=== PATIENT | female | born 1955 | race Caucasian/White ===

== ENCOUNTER → 2019-12-14 10:03 | Outpatient (REF) | payer OTHER, SELFPAY | LOC: ANHLAB 10:03 | PROVIDERS: PCP Internal Medicine; Visit Provider Nurse Practitioner | DX: C44.519 Basal cell carcinoma of skin of other part of trunk (principal) | CPT/HCPCS: 88305; 88331; 88332 ==

== ENCOUNTER → 2020-11-11 11:26 | Outpatient (CLI) | payer MEDICARE, SELFPAY ==
--- NOTE | ~2020-11-11 | MM_ITS ---
EXAMINATION: MM screening [facility] BI w damien HISTORY: Screening mammogram TECHNIQUE: Craniocaudal and mediolateral oblique 3-D tomosynthesis images were obtained and synthetic 2-D images were generated. CAD analysis was submitted and interpreted. COMPARISON: 11/02/2019, 10/31/2018, 10/18/2017 BREAST PARENCHYMAL COMPOSITION: The breasts are heterogeneously dense, which may obscure small masses . FINDINGS: There is no evidence of suspicious mass, calcification, or architectural distortion to sugg est malignancy in either breast. There has been no suspicious interval change. IMPRESSION: 1. No mammographic evidence of malignancy. 2. Recommend routine screening mammography in one year. BI-RADS Category 1: Negative Reviewed, dictated and finalized at location A. NILE COUNSELOR
== END ==
PROVIDERS: Visit Provider Nurse Practitioner
DX: Z12.31 Encounter for screening mammogram for malignant neoplasm of breast (principal)
CPT/HCPCS: 77063; 77067

== ENCOUNTER → 2021-12-20 12:27 | Outpatient (CLI) | payer MEDICARE, SELFPAY ==
--- NOTE | ~2021-12-20 | DEXA_ITS ---
Bone Density Report Name: NASRA DELEON Age: 66 Sex: Female Ethnicity: White Date of : 1955 Indication: postmenopausal; screening for osteoporosis; hysterectomy; Referring Provider: RUDY Study: Bone densitometry was performed. Exam Date: December 20, 2021 Accession number: [id number] Bone Density: Region BMD T-score Z-score Classification AP Spine (L1-L4) 1.239 1.7 3.6 Normal Femoral Neck (Left) 0.835 -0.1 1.5 Normal Total Hip (Left) 0.999 0.5 1.8 Normal Femoral Neck (Right) 0.841 -0.1 1.5 Normal Total Hip (Right) 0.970 0.2 1.5 Normal Total Hip Mean 0.985 0.4 1.7 Normal World Health Organization criteria for BMD impression classify patients as: Normal (T-score at or above -1.0), Osteopenia (T-score between -1.0 and -2.5), or Osteoporosis (T-score at or below -2.5). 10-year Fracture Risk: FRAX not reported because: All T-scores for Spine Total, Hip Total, Femoral Neck at or above -1.0 Previous Exams: Region Exam Age BMD T-score BMD Change BMD Change Date g/cm2 vs Baseline vs Previous AP Spine(L1-L4) 12/20/2021 66 1.239 1.7 0.029* -0.089* 11/02/2019 64 1.328 2.6 0.117* 0.051* 09/24/2014 59 1.277 2.1 0.067* 0.067* 05/14/2008 52 1.210 1.5 Total Hip(Left) 12/20/2021 66 0.999 0.5 0.056* -0.026 11/02/2019 64 1.025 0.7 0.082* 0.002 09/24/2014 59 1.024 0.7 0.080* 0.080* 05/14/2008 52 0.944 0.0 Total Hip(Right) 12/20/2021 66 0.970 0.2 0.024 -0.047* 11/02/2019 64 1.017 0.6 0.072* 0.013 09/24/2014 59 1.005 0.5 0.059* 0.059* 05/14/2008 52 0.946 0.0 *Denotes significance at 95% confidence level, LSC for AP Spine = 0.022 g/cm2, LSC for Total Hip = 0.027 g/cm2 Clinical Information Provided by Patient: Has the following medical conditions: Hysterectomy Patient maximum height was 68.50 Menopause Age: 30 Drinks caffeinated beverages Onset of menses at age 13 Number of children 1 Impression: The patient has normal bone mass. The BMD for the AP Spine(L1-L4) decreased, changing by -0.089 since the last DXA exam. The BMD for the Total Hip(Right) decreased, changing by -0.047 since the last DXA exam. Discussion: BONE DENSITY IS ABOVE THE MINIMUM DESIRABLE LEVEL AT ALL SKELETAL SITES TESTED. This patient?s bone min
--- NOTE | ~2021-12-20 | MM_ITS ---
EXAMINATION: MM screening [facility] w damien HISTORY: Screening TECHNIQUE: Craniocaudal and mediolateral oblique 3-D tomosynthesis images were obtained and synthetic 2-D images were generated. CAD analysis was submitted and interpreted. COMPARISON: Comparison to multiple prior studies sequentially, with oldest reviewed study dated 02/2015. BREAST PARENCHYMAL COMPOSITION: The breasts are heterogenously dense, which may obscure small masses FINDINGS: There is no evidence of suspicious mass, calcification, or architectural distortion to sugg est malignancy in either breast. There has been no suspicious interval change. IMPRESSION: 1. No mammographic evidence of malignancy. 2. Recommend routine screening mammography in one year. BI-RADS Category 1: Negative Reviewed, dictated and finalized at location A. UNICATIONS SENIOR ASSOCIATE
== END ==
DX: Z12.31 Encounter for screening mammogram for malignant neoplasm of breast (principal); Z78.0 Asymptomatic menopausal state
CPT/HCPCS: 77063; 77067; 77080

== ENCOUNTER → 2023-01-03 11:24 | Outpatient (CLI) | payer MEDICARE, SELFPAY ==
--- NOTE | ~2023-01-03 | MM_ITS ---
EXAMINATION: MM screening [facility] w damien HISTORY: Screening mammogram TECHNIQUE: Craniocaudal and mediolateral oblique 3-D tomosynthesis images were obtained and synthetic 2-D images were generated. CAD analysis was submitted and interpreted. COMPARISON: December 20, 2021, November 11, 2020, November 02, 2019 bilateral screening mammogram exam[place] BREAST PARENCHYMAL COMPOSITION: The breasts are heterogeneously dense, which may obscure small masses . FINDINGS: There is no evidence of suspicious mass, calcification, or architectural distortion to sugg est malignancy in either breast. There has been no suspicious interval change. IMPRESSION: 1. No mammographic evidence of malignancy. 2. Recommend routine screening mammography in one year. BI-RADS Category 1: Negative Reviewed, dictated and finalized at location A. LER CAREGIVER
== END ==
PROVIDERS: PCP Hospitalist; Visit Provider Nurse Practitioner
DX: Z12.31 Encounter for screening mammogram for malignant neoplasm of breast (principal)
CPT/HCPCS: 77063; 77067

== ENCOUNTER 2024-05-06 15:31 | Outpatient (CLI) | payer MEDICARE, SELFPAY ==
--- NOTE | ~2024-05-06 | MM_ITS ---
EXAMINATION: MM screening [facility] w damien HISTORY: Screening mammogram TECHNIQUE: Craniocaudal and mediolateral oblique 3-D tomosynthesis images were obtained and synthetic 2-D images were generated. CAD analysis was submitted and interpreted. COMPARISON: 01/03/2023, 12/20/2021, 11/11/2020 BREAST PARENCHYMAL COMPOSITION:Not Dense. There are scattered areas of fibroglandular density. FINDINGS: There is a more conspicuous 1 cm mass at the posterior third right breast at the slightly o uter, lower aspect. No other suspicious mass, calcification, or architectural distortion are identifi ed in either breast to suggest malignancy. IMPRESSION: More conspicuous 1 cm lower, slightly outer right breast mass, as detailed above. Spot compression v iews and ultrasound are recommended for further evaluation. BI-RADS Category 0: Incomplete: Needs additional imaging evaluation. Reviewed, dictated and finalized at location . IMPRESSION: More conspicuous 1 cm lower, slightly outer right breast mass, as detailed abo ve. Spot compression views and ultrasound are recommended for further evaluatio n. BI-RADS Category 0: Incomplete: Needs additional imaging evaluation.
== END 2024-05-06 15:32 ==
LOC: MICIMG 15:32
PROVIDERS: PCP Hospitalist; Visit Provider Hospitalist
DX: Z12.31 Encounter for screening mammogram for malignant neoplasm of breast (principal); R92.8 Other abnormal and inconclusive findings on diagnostic imaging of breast
CPT/HCPCS: 77063; 77067

== ENCOUNTER 2024-06-17 09:46 | Outpatient (CLI) | payer MEDICARE, SELFPAY ==
--- NOTE | ~2024-06-17 | MMUS_ITS ---
EXAMINATION: MM diagnostic [facility] RT w damien, US breast RT complete HISTORY: Right breast mass follow-up TECHNIQUE: Additional 3-D tomosynthesis images of the right breast were performed and synthetic 2-D i mages were generated. CAD analysis was submitted and interpreted. High resolution complete right tre st ultrasound was performed. COMPARISON: Comparison to multiple prior studies sequentially, with oldest reviewed study dated 10/05. BREAST PARENCHYMAL COMPOSITION: Dense: The breasts are heterogeneously dense, which may obscure small masses FINDINGS: MAMMOGRAPHIC FINDINGS: There are nodular asymmetries in the inferior aspect of the right breast, although no discrete mass i dentified. No suspicious cluster of calcifications. No definitive architectural distortion. ULTRASOUND: Complete US of all 4 quadrants of the breast/s and retroareolar region was reviewed. In the right gabriella ast at 7-8:00, 7 cm from the nipple there is a complex heterogeneous hypoechoic mass with posterior a coustic shadowing measuring 2.5 x 1.7 x 1.1 cm. There are irregular margins with some being angular. IMPRESSION: 1. Complex hypoechoic 2.5 cm right breast mass at 7-8:00, 7 cm from the nipple. 2. Ultrasound-guided right breast biopsy recommended. BI-RADS category 4, suspicious findings. Reviewed, dictated and finalized at location B. IMPRESSION: 1. Complex hypoechoic 2.5 cm right breast mass at 7-8:00, 7 cm from the nipple. 2. Ultrasound-guided right breast biopsy recommended. BI-RADS category 4, suspicious findings.
== END 2024-06-17 09:47 ==
LOC: MICIMG 09:47
PROVIDERS: PCP Hospitalist; Visit Provider Hospitalist
DX: R92.8 Other abnormal and inconclusive findings on diagnostic imaging of breast (principal)
CPT/HCPCS: 76641; 77061; 77065; G0279